=== PATIENT | female | born 2000 | race Caucasian/White ===

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

== ENCOUNTER 2019-07-11 20:29 | Emergency (ER) | payer MEDICAID ==
[~2019-07-11] VITALS: Ht 154.9 cm; Wt 59.0 kg
[2019-07-11 20:40] VITALS: BP_SYST 136
--- NOTE | 2019-07-11 20:49 | NUR ---
Patient to ER chair to gown for evaluation. Side rails up. Report given to Lu JOHNSON.
--- NOTE | 2019-07-11 20:56 | NUR ---
Pt moved to bed 4 ,report given to Jonathan JOHNSON.
[2019-07-11] MEDS ORDERED: DIPHENHYDRAMINE INJ 50 MG/ML VIAL IM ONE (21:00)
[2019-07-11] MEDS ORDERED: KETOROLAC TROMETHAMINE 30 MG VIAL IM ONE (21:00)
[2019-07-11] MEDS ORDERED: PROCHLORPERAZINE EDISYLATE 10 MG/2 ML VIAL IM ONE (21:00)
--- NOTE | 2019-07-11 21:00 | NUR ---
Pt brought in by self. Pt awakwe, alert. oriented x4. Pt ambulates with steady gait. Pt states that she has had 8/10 headache for approx 1 month, pt also states that she has had generalized body aches starting today. pt denies any other medical complaint at this time. pt denies chest pain, nausea, vomiting, diarrhea, shortness of breath, any other medical complaint at this time. Pt resting in ED bed comfortably, no acute distress at this time. VSS
--- NOTE | 2019-07-11 21:00 | NUR ---
ER at bedside examining patient.
[2019-07-11 23:05] VITALS: BP_SYST 129
--- NOTE | 2019-07-11 23:05 | NUR ---
Patient given written and verbal discharge instructions and verbalizes understanding. ER MD discussed with patient the results and treatment provided. Patient in stable condition. ID arm band removed. Rx of naprosmarcoZofran given. Patient educated on pain management and to follow up with PMD. Pain Scale 2/10. Opportunity for questions provided and answered. Medication side effect fact sheet provided.
== END 2019-07-11 23:05 | disposition home or self-care (01) ==
LOC: SED 20:29
DX: G43.901 Migraine, unspecified, not intractable, with status migrainosus (principal)
CPT/HCPCS: 70450; 81025; 96372; 99284; J0780; J1200; J1885